=== PATIENT | female | born 1945 | race Caucasian/White ===

== ENCOUNTER 2018-09-19 08:57 | Day surgery (SDC) ==
[2018-09-19] MEDS: BETADINE OPTH PREP OP PRN ×2 (09:10→09:55)
[2018-09-19] MEDS: TETRACAINE 0.5% UNIT-DOSE OP PRN ×2 (09:10→09:55)
[2018-09-19] MEDS: CYCLOGYL 2% OPTH OP PRN ×3 (09:11→09:21)
[2018-09-19] MEDS ORDERED: BSS WITH EPINEPHRINE OP ONE (09:23)
[2018-09-19] MEDS ORDERED: DEX-MOXI-KETOR OPTH INJ 1/0.5/0.4 MG/ML IO ONE (09:23)
[2018-09-19] MEDS ORDERED: LIDOCAINE 1% 20 ML MDV ID STA (09:23)
[2018-09-19] MEDS ORDERED: ZOFRAN 4 MG/2 ML IVP ONE (09:23)
[2018-09-19] MEDS ORDERED: LIDOCAINE 1%/PHENYLEPHRINE 1.5% BSS (SURGERY) INTRAOCULA ONE (09:23)
[2018-09-19 09:31] VITALS: TEMP 97
[2018-09-19] MEDS ORDERED: ZOFRAN 4 MG/2 ML ONE (09:58)
[2018-09-19] MEDS ORDERED: VERSED ONE (09:58)
[2018-09-19] MEDS ORDERED: SUBLIMAZE ONE (09:58)
[2018-09-21 09:25] VITALS: BP 127/68
== END 2018-09-19 10:50 | disposition home or self-care (01) ==
LOC: SURG 08:57
PROVIDERS: ATTEND Ophthalmology
DX: H25.812 Combined forms of age-related cataract, left eye (principal)

== ENCOUNTER 2018-10-05 08:05 | Day surgery (SDC) | payer OTHER ==
[2018-10-05] MEDS: TETRACAINE 0.5% UNIT-DOSE OP PRN ×2 (08:25→09:40)
[2018-10-05] MEDS: BETADINE OPTH PREP OP PRN ×2 (08:25→09:40)
[2018-10-05] MEDS: CYCLOGYL 2% OPTH OP PRN ×3 (08:26→08:36)
[2018-10-05] MEDS ORDERED: LIDOCAINE 1%/PHENYLEPHRINE 1.5% BSS (SURGERY) INTRAOCULA ONE (08:40)
[2018-10-05] MEDS ORDERED: ZOFRAN 4 MG/2 ML IVP ONE (08:40)
[2018-10-05] MEDS ORDERED: LIDOCAINE 1% 20 ML MDV ID STA (08:40)
[2018-10-05] MEDS ORDERED: BSS WITH EPINEPHRINE OP ONE (08:40)
[2018-10-05] MEDS ORDERED: DEX-MOXI-KETOR OPTH INJ 1/0.5/0.4 MG/ML IO ONE (08:40)
[2018-10-05 08:44] VITALS: TEMP 97.5
[2018-10-05] MEDS ORDERED: SUBLIMAZE ONE (09:47)
[2018-10-05] MEDS ORDERED: VERSED ONE (09:47)
[2018-10-05] MEDS ORDERED: ZOFRAN 4 MG/2 ML ONE (09:47)
[2018-10-05 10:29] VITALS: BP 129/65
== END 2018-10-05 10:40 | disposition home or self-care (01) ==
LOC: SURG 08:05
PROVIDERS: ATTEND Ophthalmology
DX: H25.811 Combined forms of age-related cataract, right eye (principal)